=== PATIENT | male | born 1985 | race Two or more races ===

== ENCOUNTER 2017-02-07 22:05 | Emergency (ER) | payer OTHER ==
[~2017-02-07] VITALS: Ht 165.1 cm; Wt 79.4 kg
[2017-02-07 22:41] VITALS: BP 124/76
--- NOTE | 2017-02-07 23:23 | NUR ---
RT AT BEDSIDE TO GIVE HHN TX.
== END 2017-02-08 00:11 | disposition home or self-care (01) ==
LOC: ER 22:06
DX: J98.01 Acute bronchospasm (principal); J00 Acute nasopharyngitis [common cold]; Z98.890 Other specified postprocedural states; Z88.0 Allergy status to penicillin; Z87.891 Personal history of nicotine dependence
CPT/HCPCS: A4606; Q0163; Z7610